=== PATIENT | male | born 1940 | race Caucasian/White ===

== ENCOUNTER 2024-04-01 08:48 | Day surgery (SDC) | payer MEDICARE, SELFPAY ==
[2024-03-21 08:41] VITALS: BMI 27.7
[2024-04-01] VITALS (12 sets, daily range): BP systolic 102–167; BP diastolic 40–98; PULSE 50–71; RESP 12–18; TEMP 35.8–36.6; O2SAT 96–100; BMI 27.3; BMI 29.5
--- NOTE | 2024-04-01 | DI.RAD.S_ITS ---
PROCEDURE: XR HIP W PEL IF DONE RT 2V INDICATIONS: Anterior right total hip TECHNIQUE: 2 intraoperative fluoroscopic view(s) of the hip acquired. COMPARISON: None. FINDINGS: Intraoperative fluoroscopic images shows right total hip arthroplasty in progress. IMPRESSION: Fluoro guidance was provided intraoperatively for right total hip arthroplasty. Dictated by: Ren Mcdonnell M.D. on 04/01/2024 at 14:33 Approved by: Ren Mcdonnell M.D. on 04/01/2024 at 14:35
--- NOTE | 2024-04-01 06:00 | DI.RAD.S_ITS ---
PROCEDURE: XR HIP W PEL IF DONE RT 2V INDICATIONS: ISHAN TECHNIQUE: 2 views of the hip were acquired. COMPARISON: [facility], , XR HIP W PEL IF DONE RT 2V, 04/01/2024, 12:28. FINDINGS: Bones: Right hip arthroplasty. Pelvic clips are also seen Iipn-[id number]-bzarnigy left hip arthrosis. Soft tissues: Postsurgical changes IMPRESSION: Postsurgical changes following right hip arthroplasty. Dictated by: Pablo Perez M.D. on 04/05/2024 at 12:19 Approved by: Pablo Perez M.D. on 04/05/2024 at 12:19
[2024-04-01] MEDS: ACETAMINOPHEN 325 MG TABLET 975 MG PO (09:41)
[2024-04-01] MEDS: MELOXICAM 7.5 MG TABLET 15 MG PO (09:42)
[2024-04-01] MEDS: LACTATED RINGERS 1,000 ML 42 ML IV ×2 (09:43→12:46)
--- NOTE | 2024-04-01 10:20 | PM.PREOP ---
Pre-operative Note Interval Note History & Physical reviewed/Exam performed by Physician: Yes Changes to H&P: No
--- NOTE | 2024-04-01 11:00 | SUR.OPER ---
Supine on padded [place] table with bilateral legs secured in padded positioning boots and suspended in positioning spars, operative leg in traction per surgeon. Head on one pillow. Arms secured on padded armboard <90 degrees abduction. Padded perineal post in place per surgeon.
[2024-04-01 11:24] LABS: Hematocrit 39.5 % (41-53); Hemoglobin 13.4 g/dL (13.5-17.5); Mean Corpuscular HGB Conc 33.8 % (30-36); Mean Corpuscular Hemoglobin 33.8 PG (26-34); Platelet Count 172 X10^3/uL (150-400); Red Blood Cell Count 3.95 X10^6/uL (4.5-5.9); Red Cell Distribution Width 14.1 % (11.6-14.8); White Blood Cell Count 6.1 X10^3/uL (4.5-11.0)
[2024-04-01 11:35] LABS: BUN Creatinine Ratio 24.2 (6-22); Blood Urea Nitrogen 36 mg/dL (9-20); Calcium 9.7 mg/dL (8.4-10.2); Carbon Dioxide 22 mmol/L (22-32); Chloride 108 mmol/L (98-107); Estimated Glomerular Filt Rate 46 mL/min (>60); Glucose 90 mg/dL (80-110); HEMOLYSIS < 15 (0-50); Potassium 4.7 mmol/L (3.4-5.1); Sodium 140 mmol/L (137-145)
[2024-04-01] MEDS: TRANEXAMIC ACID 1,000 MG VIAL 1000 MG INJ ×2 (11:41→13:14)
[2024-04-01] MEDS: CEFAZOLIN 2 GM/100 ML PREMIX 100 ML IV ×2 (11:44→20:52)
[2024-04-01] MEDS: ROPIVACAINE/EPI/CLONIDINE/KET 50 ML SYRINGE INJ (12:06)
--- NOTE | 2024-04-01 13:19 | P.OP_ITS ---
Operative Date/Time/Diagnoses Date of procedure: 04/01/24 Pre-op diagnosis: Right hip osteoarthritis Post-op diagnosis: same Procedure & Clinicians Procedure: Right total hip arthroplasty (79077) Same procedure as scheduled: Yes Surgeon: Mikael Millan Transport Aircrewman: Gail Romero Anesthesia Type: Spinal, Sedation and Local Operative Notes Estimated Blood Loss (mL): 300 Procedure in detail: Right Uncemented Direct Anterior Depuy Total Hip Arthroplasty: Implants: * [place] Gription size 56 cup? * Actis femoral stem size 9 high offset? * 36 mm +8.5 ceramic femoral head? Procedure Summary: This 83-year-old male patient had an extremely varus hip preoperatively. I also noted some areas of cortical irregularities in his femur so I obtained an MRI of his femur for preoperative planning purposes. This did not demonstrate any concerning features for malignancy on my review. I obtained a DEXA scan for evaluation of his bone quality which demonstrated a T-score of-0.6, indicative of overall very good bone quality for an 83-year-old male. I therefore utilized uncemented fixation with a triple tapered collared uncemented stem for the procedure today. Because of his extremely varus anatomy I planned to place the stem below the lesser trochanter. After initial trialing I found that a size 8 broach, although stable with a high offset neck and a +12 head, was rotationally unstable. I therefore upsized to a size 9 broach and repeated the trialing process with a +8.5 head. When this was appropriate on all parameters I implanted those sizes. I did sink the stem below the lesser trochanter and the calcar planer did remove a portion of the lesser trochanter. A conjoined tendon release was used given the depth that which it was necessary to sink the broach. Procedure in Detail: This patient was seen preoperatively and evaluated for hip pain which was refractory to numerous nonoperative treatment modalities. Their hip pain correlated with radiographic changes demonstrating significant degeneration in the hip joint. The risks and benefits of continued nonoperative management versus operative management were discussed at length and all of the patient?s q uestions were answered. Additional educational materials providing further details beyond our discussion in clinic were provided via a publicly available patient education video which included the incidence of medical complications associated with total hip arthroplasty, reasons for revision following total hip arthroplasty, and patient satisfaction rates following total hip arthroplasty. That video can be accessed at [email or web address] . With this understanding of the risks inherent to the procedure, the patient elected to move forward with operative management. Following preoperative optimization, the patient was scheduled for surgery. The patient was met in the preoperative holding area the day of the procedure and all questions were answered. The patient?s nares were swabbed with betadine in order to decolonize them from MRSA. Informed consent was signed and the right limb was marked with indelible ink.? The patient was brought back to the operating room where anesthesia was induced. The patient was transferred to the [place] table and all bony prominences were padded. The operative site was prepped and draped in the usual sterile fashion. Prior to incision, tranexamic acid and cefazolin were administered. Operative templating images were displayed demonstrating the anticipated implant sizes and correct operative extremity. A timeout procedure was performed verifying the patient?s identity, medical comorbidities, allergies, relevant medications, anesthesia type and the surgical plan. All present were in agreement. The assistance of a physician observation assistant was required for positioning, room setup, soft tissue retraction and wound closure. Without this assistance, the procedure would have been significantly more challenging and time consuming.?? A direct anterior approach to the hip was utilized. This was performed with a longitudinal incision through a Heuter interval. The incision was planned 2 cm distal and 2 cm lateral to the ASIS extending towards the lateral patella, in line with the muscle body of the TFL. Following incision, the subcutaneous tissue was dissected while taking care to avoid injury to the lateral femoral cutaneous nerve. The fascia overlying the TFL was identified by dissecting off the overlying fat and identifying perforating vessels to the TFL. The TFL fascia was incised and dissected away from the medial border of the TFL. A cobra retractor was placed over the superior femoral neck between the abductors and the hip capsule and used to reflect the TFL laterally. A [place] self-retainer was then placed in the distal aspect of the wound between the TFL and the rectus femoris. This was tensioned to open up the direct anterior interval and the lateral circumflex vessels were identified and coagulated using electrocautery. The floor of the TFL fascia was incised, exposing the pericapsular fat overlying the hip capsule. A second cobra retractor was placed on the inferior femoral neck. A double-bent soft tissue retractor was placed on the anterior wall of the acetabulum and used to tension the reflected head of rectus femoris, which was then released in order to limit soft tissue tension. A capsulotomy was made in the midline of the anterior hip capsule in line with the femoral neck ending at the vastus tubercle. The double-bent retractor was removed in order to limit the amount of time that a soft tissue retractor remained on the anterior wall and protect the femoral nerve. Tag stitches were placed in the superior and inferior leaflets of the hip capsule. An Mikey soft tissue retractor was introduced over the tag stitches and tensioned in the interval between the rectus femoris and the TFL in order to retract and protect those muscles. The cobra retractors were replaced intracapsularly, with one over the superior neck in the pocket created by the base of the greater trochanter and the other on the femoral head. The capsulotomy was extended laterally to the base of the greater trochanter and medially to the lesser trochanter. This required externally rotating the hip. Once the lesser trochanter had been identified, a neck cut was planned according to measurements from preoperative templating. A ruler was cut at the length measured between the superior aspect of the lesser trochanter and the collar of the prosthesis. This line was extended towards the inferior aspect of the lateral cobra retractor to plan a cut which would leave minimal residual femoral neck laterally. The neck was cut at 60 degrees of external rotation along that line. A second cut was performed to remove a large napkin ring and facilitate head extraction. The napkin ring cut and femoral head were removed.?? A broad anterior wall retractor was placed between the labrum and the anterior capsule so that the anterior capsule would prevent capturing and pinching the femoral nerve anteriorly. An additional retractor was placed on the posterior wall. External rotation and traction were applied through the [place] table so that the cut surface of the femoral neck would not restrict access to the acetabulum. The labrum was excised sharply and the pulvinar was excised with electrocautery to limit bleeding from branches of the obturator artery. Acetabular reamers were selected based on preoperative templating and measurements of the excised femoral head. These were introduced into the acetabulum. Fluoroscopy was utilized to replicate a standing AP pelvis radiograph by centering over the pelvis, rotating until there was appropriate symmetry between the obturator foramen, and introducing caudal tilt to match the position of the pubic symphysis relative to the sacrococcygeal junction according to the patient?s anatomy. Fluoroscopy was utilized to ensure appropriate reaming depth. Once satisfied with the reaming depth corresponding to the preoperative template and the pinch fit between the columns, an appropriate sized acetabular cup was selected which would provide 1 mm of press-fit. This cup was introduced and manipulated until appropriate abduction and anteversion angles were obtained with careful attention to appropriate abduction and anteversion angles as evaluated by the position of the cup relative to the anterior and posterior ragland of the acetabulum and the AP fluoroscopy which recreated the patient?s sta nding radiograph. The cup was impacted into place. Peripheral osteophytes were removed. The acetabular liner was then placed with care to ensure locking of the locking mechanism.? Attention was then turned to the femur. All retractors were removed, traction was released, a retractor was placed in the interval between the hip capsule and the gluteus minimus, and the hip was externally rotated to 90 degrees. Traction was applied through the [place] table to tension the lateral capsule and this was released using electrocautery. Traction was released and a [place] hook was placed posteriorly around the proximal femur at the level of the vastus ridge. The table height was lowered in order to restrict the tension on the anterior structures during hip hyperextension to limit the risk of femoral nerve palsy. With traction off and the hip at 90 degrees of external rotation, the hip was hyperextended and adducted while manually elevating the femur away from the acetabulum with the [place] hook to ensure it would not be caught behind the greater trochanter. An asymmetric retractor was placed over the calcar and a broad double-pronged retractor was placed over the greater trochanter. The tag stitch capturing the lateral leaflet of the capsule was moved to the medial side, leaving the conjoined and piriformis tendons isolated in the face of the greater trochanter. The hip was externally rotated and elevated. A release of the conjoined tendon was necessary in order to obtain adequate exposure for broaching. The canal was opened with an opening broach and a rasp was used to remove cancellous bone. A rongeur was used to remove the residual lateral bone at the base of the greater trochanter to avoid placing the stem in varus. The femur was then broached to the appropriate sized stem yielding good rotational fit and fill of the canal as well as appropriate version of the stem trial. Neck and head trials were placed, all retractors were removed and the hip was returned to neutral abduction and extension. I then reduced the hip. Initial trialing was performed with a size 8 broach, a high offset neck and a +5 head. I initially manually externally rotated the hip and found that it disl ocated, so I upsized to a +8.5 head. This appeared to be slightly short so I upsized to a +12 head. With that construct in place there was no instability with maximum external rotation. I then locked the hip in 45 degrees of external rotation and dropped it to the floor with traction off which demonstrated no instability. An AP pelvis fluoroscopic image matching the preoperative standing radiograph with both lesser trochanters visible and both hips in 40 degrees of external rotation demonstrated grossly appropriate leg length and offset. AP and lateral hip fluoroscopic images were obtained to evaluate the broach size which demonstrated grossly appropriate canal fill. The hip was dislocated and I returned to the broaching position. Based on my evaluation during initial trialing I planned to place these definitive implants. I returned to the broaching position and found that the size 8 broach was actually rotationally unstable so I upsized to a size 9 broach. This did add some length, as it did not seem to the same depth as the size 8 broach. I had not yet calcar planed so I was able to calcar plane only at that relatively higher point in the femur. I repeated the trialing process with a +8.5 head to ensure that it would be appropriate to downsize the head to equalize the leg lengths gained from up sizing the stem. All parameters remained appropriate as they had with the size 8 and the +12 head. I therefore returned to the broaching position with the intention of placing those definitive implants. I again tested the size 9 broach and found that it was rotationally stable although I was able to sink it approximately an additional mm.. The definitive stem was placed and the trunnion was cleaned and dried. I placed a ceramic head onto the trunnion and impacted it into place on the Richard taper.?? All retractors were removed and the hip was reduced. A dilute mixture of betadine and peroxide was used to bathe the soft tissues during final fluoroscopic assessment. Appropriate component positioning was confirmed on an AP pelvis radiograph with the operative and nonoperative legs in 40 degrees of external rotation, evaluating leg length and offset. Appropriate stem fill was evaluated on AP and lateral hip radiographs. No fractures were identified on these radiographs. There was no hip instability with maximum (approximately 115) external rotation as well as a 45 degree drop test. The hip was copiously irrigated with pulse lavage. The capsule was closed with absorbable interrupted suture. The TFL fascia was closed with barbed suture while carefully protecting the lateral femoral cutaneous nerve from entrapment. A mixture of Ropivacaine, Epinephrine, Clonidine and Toradol was infiltrated throughout the soft tissues. The skin was closed with 2-0 and 3-0 sutures. Surgical glue was applied and a soft dressing was placed.??The sponge, instrument and needle counts were reported as being correct at the end of the case.??No obvious complications occurred. The patient was transferred from the [place] table back to a stretcher. The patient emerged from anesthesia without difficulty and was taken to the PACU in a stable condition.? Plan for aftercare: * Anterior hip precautions * Weightbearing as tolerated * Aspirin 81 twice per day for DVT prophylaxis * Anticipate discharge home tomorrow * Change into normal clothes upon arrival on the hospital floor * Mobilize in the halls as much as is logistically possible. If physical therapy is unavailable for mobilization, then patient should mobilize with nursing staff * Multimodal pain regimen with no IV opioids ordered * Apply ice machine to operative hip. Ensure that sufficient ice is in the chamber for the pad to remain cold * Follow up at [facility] in 2 weeks * Detailed postoperative instructions available at [email or web address]
[2024-04-01] MEDS: OXYCODONE IR 5 MG TABLET PO (14:32)
[2024-04-01] MEDS: LACTATED RINGERS 1,000 ML 100 ML IV (15:03)
--- NOTE | 2024-04-01 15:27 | PC.NURSE ---
Day shift: In room from PACU at approx 1445. He is A&Ox4. VS WNL. RA 97%. Agrees to not get OOB w/o help from staff. PPP. Weakness present in BLE's. Dressing is CDI. Spouse in room for support.
--- NOTE | 2024-04-01 16:20 | PT.IIE ---
Current Diagnoses Unilateral primary osteoarthritis, right hip (04/01/24) Surgery Performed Operation Date: 04/01/24 10:45 Actual Procedures p Total Hip Arthroplasty/Anterior Approach - hana table(Right) - Mikael Millan MD Surgical History (Last Reviewed 04/01/24 @ 09:51 by Kaylin Briseno, RN) History of back surgery (1992) History of tonsillectomy Hx of arthroscopy of left knee Hx of arthroscopy of right knee Hx of bilateral cataract extraction (2022) Hx of laminectomy (1990) Hx of prostatectomy (2003) Medical History (Last Reviewed 04/01/24 @ 09:51 by Kaylin rBiseno, RN) Atrial fibrillation Hearing loss HLD (hyperlipidemia) HTN (hypertension) Hx of syncope Hypothyroid Memory loss Mild aortic stenosis Osteoarthritis PAF (paroxysmal atrial fibrillation) Prostate cancer Skin cancer SVT (supraventricular tachycardia) Vitamin D deficiency Physical Therapy Inpatient Evaluation/Re-Eval M1 PT/OT-IP Prior Functional Status Start: 04/01/24 17:27 Freq: NEEDED Status: Active Protocol: Document 04/01/24 16:20 AB (Rec: 04/01/24 17:39 AB [id number]) Medical Review Prior Functional Status Medical History Reviewed Yes Communication able to make needs known Mobility and Gait pt stated that he was independent with all mobilities and ambulation without AD Social History Household Members significant other Living Arrangements Mobile home Number of Floors (Floors) One Floor Number of Stairs To Enter/Railing? ramp to enter the house Home Environment High Toilet,Ramp Home Equipment Front Wheel Walker,Straight Cane,Shower Seat without Backrest,Hand Held Shower,Grab Bars Near Toilet,Grab Bars In Shower M2 PT-IP Current Condition Start: 04/01/24 17:27 Freq: NEEDED Status: Active Protocol: Document 04/01/24 16:20 AB (Rec: 04/01/24 17:39 AB [id number]) Physical Therapy Current Condition Current Condition Evaluation Date 04/01/24 Treatment Diagnosis s/p R ISHAN anterior; difficulty in walking Onset Date 04/01/24 M3 PT-IP Subjective Start: 04/01/24 17:27 Freq: NEEDED Status: Active Protocol: Document 04/01/24 16:20 AB (Rec: 04/01/24 17:39 AB [id number]) Subjective Physical Therapy Visit Type Type Initial Evaluation Visit Start Time 16:20 Visit Stop Time 17:25 Number of SET BUILDER Visits 0 Physical Therapy Visit Comments Patient Comments agreeable to do PT Therapy Pain Assessment Pain When Pain Assessed At Rest Pain Present Pain Present Pain Reported Location Right Hip Intensity 3 Scale Used Numeric (0 - 10) Pain Management Techniques Distraction,Modification of Treatment,Re-positioning, Timing of Activity with Medications M4 PT-IP Mobility and Gait Start: 04/01/24 17:27 Freq: NEEDED Status: Active Protocol: Document 04/01/24 16:20 AB (Rec: 04/01/24 17:39 AB [id number]) PT-Bed Mobility Assessment Supine to Sit Supine to Sit Maximum Assistance PT-Transfer Assessment Sit to and From Stand Sit to and from Stand Moderate Assistance,1 Person Assistance,Use of Upper Extremities Equipment Transfer Assistive Device Gait Belt,Front Wheeled Walker Orthotic/Prosthetic Devices or Brace: No Comments Mobility Comments pt supine in bed. significant other in room with pt. obtained PLOf and home set up from pt and significant other. post-op folder provided and reviewed contents. educated pt and spouse regarding R hip anterior precautions and WBAT. BP in supine: 161/80. O2 sat 100 % and RI 66 pt completed supine to sit max A and max cues for techniques . pt needed assist to move RLE to EOB. pt able to sit on EOB SBA. no c/o dizziness/ lightheadedness. completed sit to stand mod A and cues. pt able to standin min to mod A for standing balance using FWW for support. pt with decrease bladder control and instructed to sit back down. pt stated that he still does not have sensation on his groin/bladder. assist pt with brief management. completed sit to stand min to mod A and max cues. NAC in room and assisted with use of urinal and brief management. pt ambulated in room using fWW min A and cues ~ 40 ft. cued for anterior hip precautions and RLe stability/quads activation. pt sat on the chair. positioned pt on the chair. call light and table placed within reach. caregiver training set up for tomorrow at 10 am. Gait Assessment Gait Gait Assistance Required: Minimum Assistance Distance (Feet) 40 Able to Maintain Weight Bearing Status Yes During Gait Assistive Devices Assistive Device Gait Belt,Front Wheeled Walker Orthotic/Prosthetic Devices or Brace: No Gait Deviations General Gait Pattern Antalgic,Decreased Feet Clearance Factors Limiting Gait Function Factors Limiting Gait Function Decreased Activity Tolerance, Decreased Strength,Limited Range of Motion,Pain,Poor Balance,Poor Safety Awareness PT-Balance Assessment Sitting Balance and Reactions Static Sitting Balance Ability Normal Dynamic Sitting Balance Ability Good Standing Balance and Reactions Static Standing Balance Ability Fair Dynamic Standing Balance Ability Fair Device Used FWW M5 PT-IP Objective Assessments Start: 04/01/24 17:27 Freq: NEEDED Status: Active Protocol: Document 04/01/24 16:20 AB (Rec: 04/01/24 17:39 AB [id number]) Orientation Orientation/Cognition Level of Alertness Alert Orientation Name,Place,Situation Language Function Ability No Deficits Noted Safety Awareness Understands Safety Issues Memory Description No Deficits Noted Gross Range of Motion Lower Extremity ROM Assessment Within Functional Limits Strength Lower Extremity Strength Assessment Right Impaired Hip 2+/5 Knee 3+/5 Coordination Assessment Gross Coordination Gross Coordination WNL Sensation Assessment Sensation Sensation Description Numbness Comments Sensation Comments groin numbness Muscle Tone Muscle Tone WNL Yes M6 PT-IP Treatment Start: 04/01/24 17:27 Freq: NEEDED Status: Active Protocol: Document 04/01/24 16:20 AB (Rec: 04/01/24 17:39 AB [id number]) Physical Therapy Treatment Exercises Exercises Heel Slides Education Education Provided Precautions,Weight Bearing Status,Post-Op Packet,Safety M7 PT-IP Assessment and Plan Start: 04/01/24 17:27 Freq: NEEDED Status: Active Protocol: Document 04/01/24 16:20 AB (Rec: 04/01/24 17:39 AB [id number]) PT Summary Assessment and Plan Potential Rehabilitation Potential Fair Status of Condition at Evaluation Evolving Summary Impairments Pain,ROM,Strength,Balance, Coordination,Sensation,Bed Mobility,Transfers,Gait, Activity Tolerance Assessment Summary pt is an 83 y/o M s/p R ISHAN anterior approach POD 0. pt has R hip anterior precautions and is WBAT on RLE. pt requiring max A for bed mobility and min to mod A for transfers and ambulation using FWW. caregiver training set up for tomorrow at 10 am. will continue to assess progress. pt stated that he has outpt PT setup. Goals Bed Mobility Goal Independent Transfer Goal Independent,Front Wheeled Walker Gait Goal Independent,Front Wheel Walker Gait Distance 200 Days to Meet Goals 5 Frequency of Treatment Frequency Of Treatment Twice a Day Treatment Plan Physical Therapy Treatment Plan Bed Mobility Training,Transfer Training,Gait Training, Therapeutic Exercise,Balance Retraining,Post Op Education, Discharge Planning,Hot or Cold Pack,Neuromuscular Re-ed, Coordination Retraining,Manual Therapy Precautions Anterior Hip Precautions No Hip Extension,No Hip External Rotation Weight Bearing Status Weight Bearing Status Weight Bear as Tolerated Allowed Weight Bearing Amount (enter % RLE WBAT or #) (%) Recommendations To Nursing Amount of Assist Needed 1 Person Assist Discharge Recommendations PT Discharge Recommendations Home with Assistance, Outpatient PT Transportation Needs at Discharge Private Vehicle
[2024-04-01] MEDS: METOPROLOL IR 25 MG TABLET 12.5 MG PO (16:37)
--- NOTE | 2024-04-01 21:01 | PM.PN.1 ---
Subjective Subjective Interval history: I came by to see [place] postoperatively. He is sitting in his bedside chair resting comfortably. He reports that he has had no issues getting up and walking around his room for brief periods of time. He has minimal pain currently. He reports he has not yet urinated but does not have any issues urinating at baseline as he has had a prostate resection. He has intact sciatic and femoral nerve function. His dressing is clean dry and intact. Exam Vital Signs (past 8 hours): - 04/01/24 13:50 04/01/24 13:55 04/01/24 14:00 Temperature 97.3 F L Pulse Rate 71 63 52 L Respiratory Rate 14 14 14 Blood Pressure 126/46 L 127/40 L 160/78 H Pulse Oximetry 96 98 99 04/01/24 14:10 04/01/24 14:24 04/01/24 14:59 Temperature 96.5 F L Pulse Rate 62 66 50 L Respiratory Rate 14 12 16 Blood Pressure 142/75 H 150/74 H 167/92 H Pulse Oximetry 98 98 100 04/01/24 15:00 04/01/24 16:00 04/01/24 17:00 Temperature Pulse Rate 69 Respiratory Rate Blood Pressure 153/81 H 140/98 H 161/80 H Pulse Oximetry 100 04/01/24 18:00 04/01/24 20:43 Temperature 97.9 F 97.7 F Pulse Rate 63 62 Respiratory Rate 18 18 Blood Pressure 102/59 L 118/62 Pulse Oximetry 100 99 Oxygen Delivery Method Room Air Objective Labs 04/01/24 11:13 04/01/24 11:13 Labs: Laboratory Results - last 24 hr 04/01/24 11:13 WBC 6.1 RBC 3.95 L Hgb 13.4 L Hct 39.5 L MCV 100.0 MCH 33.8 MCHC 33.8 RDW 14.1 Plt Count 172 Sodium 140 Potassium 4.7 Chloride 108 H Carbon Dioxide 22 BUN 36 H Creatinine 1.49 H Estimated GFR 46 L BUN/Creatinine Ratio 24.2 H Glucose 90 Calcium 9.7 PFSH Medical History Skin cancer Hearing loss Memory loss Vitamin D deficiency Hypothyroid Osteoarthritis Mild aortic stenosis HLD (hyperlipidemia) HTN (hypertension) Hx of syncope Prostate cancer SVT (supraventricular tachycardia) PAF (paroxysmal atrial fibrillation) Atrial fibrillation Surgical History History of back surgery (1992) History of tonsillectomy Hx of prostatectomy (2003) Hx of bilateral cataract extraction (2022) Hx of laminectomy (1990) Hx of arthroscopy of left knee Hx of arthroscopy of right knee Social History household members: significant other Smoking Status: Former smoker alcohol intake: current Assessment & Plan Time-Based Coding :: [TOTAL MINUTES] spent with patient and on the chart (including review of chart, obtaining history, exam, reviewing outside data, placing orders, documenting exam and treatment plan, and counseling patient) on [DATE]. Quality VTE Deep Vein Thrombosis/Pulmonary Embolism Present on Admission: No
[2024-04-01] MEDS: ASPIRIN EC 81 MG TABLET PO (21:28)
[2024-04-01] MEDS: ACETAMINOPHEN 325 MG TABLET 650 MG PO (21:28)
[2024-04-02] MEDS: IBUPROFEN 600 MG TABLET PO ×3 (00:19→12:31)
[2024-04-02] MEDS: ACETAMINOPHEN 325 MG TABLET 650 MG PO ×2 (03:24→08:59)
[2024-04-02] MEDS: CEFAZOLIN 2 GM/100 ML PREMIX 100 ML IV (03:25)
[2024-04-02 04:30] VITALS: BP 117/66; PULSE 68; RESP 16; TEMP 36.8; O2SAT 96
[2024-04-02] MEDS: LEVOTHYROXINE 50 MCG TABLET PO (06:27)
--- NOTE | 2024-04-02 08:36 | P.DS_ITS ---
History of Present Illness History of Present Illness Date Patient Seen: 04/02/24 Time Patient Seen: 08:36 Chief complaint: OPB Narrative: This patient was seen preoperatively and evaluated for hip pain which was refractory to numerous nonoperative treatment modalities. Their hip pain correlated with radiographic changes demonstrating significant degeneration in the hip joint. The risks and benefits of continued nonoperative management versus operative management were discussed at length and all of the patient?s questions were answered. Additional educational materials providing further details beyond our discussion in clinic were provided via a publicly available patient education video which included the incidence of medical complications associated with total hip arthroplasty, reasons for revision following total hip arthroplasty, and patient satisfaction rates following total hip arthroplasty. That video can be accessed at [email or web address] . With this understanding of the risks inherent to the procedure, the patient elected to move forward with operative management. Discharge Providers Provider Discharge Date: 04/02/24 Primary care physician: Charley Ricketts PA-C Consults: 04/01/24 06:00 Consult to Anesthesiology Routine Comment: Consulting Provider: Anesthesiologist Reason for consultation: Regional block for post operative pain control Has provider been notified: No 04/01/24 14:59 Consult to Discharge Planning Routine Comment: Consult to Physical Therapy Evaluate & Treat Comment: Physician Instructions: post op ISHAN protocol Discharge provider: Héctor Ruiz PA-C Summary Hospital Course Discharge Diagnosis: Right hip osteoarthritis Hospital Course: Procedure: Right total hip arthroplasty (12538) Same procedure as scheduled: Yes Surgeon: Mikael Millan Sergeant At Arms: Gail Romero Anesthesia Type: Spinal, Sedation and Local Operative Notes Estimated Blood Loss (mL): 300 Procedure in detail: Right Uncemented Direct Anterior Depuy Total Hip Arthroplasty: Implants: * Darden Gription size 56 cup? * Actis femoral stem size 9 high offset? * 36 mm +8.5 ceramic femoral head? Status at Discharge Cognitive/behavioral status at discharge: oriented Functional status at discharge: uses cane/walker Overall status at discharge: patient is back to baseline Time Spent with Patient Time spent: Less than 30 minutes Exam Vital Signs (past 8 hours): - 04/02/24 04:30 Temperature 98.2 F Pulse Rate 68 Respiratory Rate 16 Blood Pressure 117/66 Pulse Oximetry 96 Oxygen Delivery Method Room Air Narrative Exam Narrative: patient found sitting in his chair comfortably. Pain control with oral medications. Patient feels he is ready to be discharged back to home. 5/5 strength in hip flexors, quadriceps, hamstrings, DF, PF, EHL bilaterally. Sensation to light touch intact throughout BLE. Calves soft, compressible, nontender. Dressing placed intraoperatively CDI. Objective Labs 04/01/24 11:13 04/01/24 11:13 Labs: Laboratory Results - last 24 hr 04/01/24 11:13 WBC 6.1 RBC 3.95 L Hgb 13.4 L Hct 39.5 L MCV 100.0 MCH 33.8 MCHC 33.8 RDW 14.1 Plt Count 172 Sodium 140 Potassium 4.7 Chloride 108 H Carbon Dioxide 22 BUN 36 H Creatinine 1.49 H Estimated GFR 46 L BUN/Creatinine Ratio 24.2 H Glucose 90 Calcium 9.7 PFSH Medical History Skin cancer Hearing loss Memory loss Vitamin D deficiency Hypothyroid Osteoarthritis Mild aortic stenosis HLD (hyperlipidemia) HTN (hypertension) Hx of syncope Prostate cancer SVT (supraventricular tachycardia) PAF (paroxysmal atrial fibrillation) Atrial fibrillation Surgical History History of back surgery (1992) History of tonsillectomy Hx of prostatectomy (2003) Hx of bilateral cataract extraction (2022) Hx of laminectomy (1990) Hx of arthroscopy of left knee Hx of arthroscopy of right knee Social History household members: significant other Smoking Status: Former smoker alcohol intake: current Discharge Assessment & Plan Assessment and Plan Assessment: Status post left hip total arthroplasty Plan of Treatment: ? Anterior hip precautions ? Weightbearing as tolerated with assistive devices ? Aspirin 81 twice per day for DVT prophylaxis ? Multimodal pain regimen. Postoperative medications already been prescribed instructed with use. ? Discharge home today. Initiate physical therapy in the next 5-10 days. ? Follow up at [facility] in 2 weeks Discharge Plan Discharge Plan Patient Disposition: Home Discharge orders & Medications Discharge Orders: Discharge (Order); Ordered 04/02/24 Ordered By: Héctor Ruiz Prescriptions: New docusate sodium 100 mg Capsule 100 mg PO BID Qty: 30 0RF aspirin 81 mg Tablet,Delayed Release (Dr/Ec) 81 mg PO BID Qty: 90 0RF Continued amlodipine 5 mg Tablet 5 mg PO DAILY levothyroxine 50 mcg Tablet 50 mcg PO DAILY metoprolol tartrate 25 mg Tablet 12.5 mg PO BID Discontinued aspirin 81 mg Capsule 81 mg PO DAILY Follow up/Referrals: Charley Ricketts, LUIS [Primary Care Provider] - Mikael Millan MD [Physician] - (Follow up at [facility] as scheduled in 2 weeks. ) Diet/Activity/Treatments Diet: Diet as Tolerated Activity: Weightbearing as tolerated, maintain anterior hip precautions. Work with outpatient physical therapy to improve mobility. Cold/Heat Therapy: Ice to the hip for additional pain control Skin/Wound/Dressing Care Report to your healthcare provider any signs of infection, such as:: chills, fever, night sweats, unusual drainage and unusual redness Dressing: Keep dressing intact, clean and dry until 2 week post-op appointment. No soaking the incision site in pools or tubs. No topical ointments or creams to the incision site. Visit Report/Discharge Packet Instructions: DI for Hip Replacement, How to Prevent Falls, DI for Prescription Opioid Use Stand Alone Forms: Patient Portal/API, Stroke Signs & Symptoms, Surgery Discharge Discharge Data Primary Care Provider: Charley Ricketts Attending Provider: Mikael Millan Quality VTE Deep Vein Thrombosis/Pulmonary Embolism Present on Admission: No
[2024-04-02 08:51] VITALS: BP 146/76; PULSE 70; RESP 16; TEMP 37.3; O2SAT 97
[2024-04-02] MEDS: METOPROLOL IR 25 MG TABLET 12.5 MG PO (08:57)
[2024-04-02] MEDS: ASPIRIN EC 81 MG TABLET PO (08:59)
--- NOTE | 2024-04-02 10:15 | PT.IPTN ---
Current Diagnoses Unilateral primary osteoarthritis, right hip (04/01/24) Surgery Performed Operation Date: 04/01/24 10:45 Actual Procedures p Total Hip Arthroplasty/Anterior Approach - hana table(Right) - Mikael Millan MD Physical Therapy Treatment Note M2 PT-IP Current Condition Start: 04/01/24 17:27 Freq: NEEDED Status: Active Protocol: Document 04/01/24 16:20 AB (Rec: 04/01/24 17:39 AB [id number]) Physical Therapy Current Condition Current Condition Evaluation Date 04/01/24 Treatment Diagnosis s/p R ISHAN anterior; difficulty in walking Onset Date 04/01/24 M3 PT-IP Subjective Start: 04/01/24 17:27 Freq: NEEDED Status: Active Protocol: Document 04/02/24 10:15 AB (Rec: 04/02/24 12:26 AB [id number]) Subjective Physical Therapy Visit Type Type Treatment Note Visit Start Time 10:15 Visit Stop Time 12:10 Number of ASSEMBLER CARBON BRUSHES Visits 0 Physical Therapy Visit Comments Patient Comments agreeable to do PT Therapy Pain Assessment Pain When Pain Assessed At Rest Pain Present Pain Present Pain Reported Location Right Hip Intensity 2 Scale Used Numeric (0 - 10) Pain Management Techniques Distraction,Re-positioning, Timing of Activity with Medications M4 PT-IP Mobility and Gait Start: 04/01/24 17:27 Freq: NEEDED Status: Active Protocol: Document 04/02/24 10:15 AB (Rec: 04/02/24 12:26 AB [id number]) PT-Bed Mobility Assessment Supine to Sit Supine to Sit Standby Assistance Sit to Supine Sit to Supine Standby Assistance PT-Transfer Assessment Sit to and From Stand Sit to and from Stand Standby Assistance,Contact Guard Assistance,1 Person Assistance,Use of Upper Extremities Equipment Transfer Assistive Device Gait Belt,Front Wheeled Walker Orthotic/Prosthetic Devices or Brace: No Transfers Transfer Destination Bed,Chair Transfer Technique ambulated Transfer Ability Level of Assist Standby Assistance,Contact Guard Assistance,Use of Upper Extremities Comments Mobility Comments pt sitting on the chair. significant other in room with pt. reviewed anterior hip precautions with pt and pt was able to recall. caregiver training conducted. educated significant other/ caregiver on how to use safety belt and how to assist pt. caregiver was able to put safety belt on pt and assisted pt with sit to stand CGA. pt ambulated in room using FWW ~ 40 ft SBA to CGA with caregiver assisting. pt sat on EOB and completed bed mobility SBA. pt completed step transfer to chair using FWW SBA. positioned pt on the chair. call light and table placed within reach. pt and significant other without further concerns. Gait Assessment Gait Gait Assistance Required: Standby Assistance,Contact Guard Assist Distance (Feet) 40 Assistive Devices Assistive Device Gait Belt,Front Wheeled Walker Orthotic/Prosthetic Devices or Brace: No Gait Deviations General Gait Pattern Antalgic,Decreased Feet Clearance Factors Limiting Gait Function Factors Limiting Gait Function Decreased Activity Tolerance, Decreased Strength,Limited Range of Motion,Pain,Poor Balance,Poor Safety Awareness M5 PT-IP Objective Assessments Start: 04/01/24 17:27 Freq: NEEDED Status: Active Protocol: Document 04/01/24 16:20 AB (Rec: 04/01/24 17:39 AB [id number]) Orientation Orientation/Cognition Level of Alertness Alert Orientation Name,Place,Situation Language Function Ability No Deficits Noted Safety Awareness Understands Safety Issues Memory Description No Deficits Noted Gross Range of Motion Lower Extremity ROM Assessment Within Functional Limits Strength Lower Extremity Strength Assessment Right Impaired Hip 2+/5 Knee 3+/5 Coordination Assessment Gross Coordination Gross Coordination WNL Sensation Assessment Sensation Sensation Description Numbness Comments Sensation Comments groin numbness Muscle Tone Muscle Tone WNL Yes M6 PT-IP Treatment Start: 04/01/24 17:27 Freq: NEEDED Status: Active Protocol: Document 04/02/24 10:15 AB (Rec: 04/02/24 12:26 AB [id number]) Physical Therapy Treatment Education Education Provided Precautions,Safety M7 PT-IP Assessment and Plan Start: 04/01/24 17:27 Freq: NEEDED Status: Active Protocol: Document 04/02/24 10:15 AB (Rec: 04/02/24 12:26 AB [id number]) PT Summary Assessment and Plan Potential Rehabilitation Potential Good Summary Impairments Pain,ROM,Strength,Balance, Coordination,Sensation,Tone, Cognition,Bed Mobility, Transfers,Gait,Activity Tolerance Progress Towards Goals Progressing Toward Goals Assessment Summary pt requiring SBA to CGA with mobility using FWW. caregiver training conducted and pt's significant other was able to safely assist pt. pt plans to go home with assist and has outpt PT set up. pt may go home when medically stable. Goals Bed Mobility Goal Independent Transfer Goal Independent,Front Wheeled Walker Gait Goal Independent,Front Wheel Walker Gait Distance 200 Days to Meet Goals 5 Frequency of Treatment Frequency Of Treatment Twice a Day Treatment Plan Physical Therapy Treatment Plan Bed Mobility Training,Transfer Training,Gait Training, Therapeutic Exercise,Balance Retraining,Post Op Education, Discharge Planning,Hot or Cold Pack,Neuromuscular Re-ed, Coordination Retraining,Manual Therapy Precautions Anterior Hip Precautions No Hip Extension,No Hip External Rotation Weight Bearing Status Weight Bearing Status Weight Bear as Tolerated Allowed Weight Bearing Amount (enter % RLE WBAT or #) (%) Recommendations To Nursing Amount of Assist Needed 1 Person Assist Discharge Recommendations PT Discharge Recommendations Home with Assistance, Outpatient PT Transportation Needs at Discharge Private Vehicle
--- NOTE | 2024-04-02 12:41 | CM.DANOTE ---
Discharge Planning/Care Management CM Discharge Assessment Start: 04/02/24 12:37 Freq: Status: Active Protocol: Document 04/02/24 12:37 LUIS (Rec: 04/02/24 12:40 LUIS [id number]) Discharge Planning Assessment Assigned Mutton Puncher YAMINI Haque DPOA/Assigned Designee Name BENITO Jiang Contact Information [phone] Advance Directives? Yes Advance Directives on File No History Provided By Patient,Medical Record Prior Living Arrangements Mobile home Household Members significant other Type of transporation used prior to Drives own vehicle admit Independent with ADL's Yes Is patient alert and oriented? Yes: Mild memory loss Patient/Family Preference OP PT Therapy Barriers to Discharge No Comment Patient is POD 1 s/p right ISHAN . Patient is indp at baseline, has planned to return home w/ spouse to assist throughout recovery and therapies have cleared patient for this plan. No needs identified from this CM team. Discharge today, outpatient PT. Discharge Plan Home Transportation Arrangement Family Referrals Initiated None needed
--- NOTE | 2024-04-02 13:02 | PC.NURSE ---
Day shift: Paperwork signed and all questions answered. Pt has all personal belongings. Pt already has his post-op scrits at home. CMS remains intact. PPP. Pain well controlled per MAR. Left unit at approx 1245 via WC. Taken by this field underwriter. Pt's Spouse is driving them home. Dressing remains CDI.
== END 2024-04-02 13:04 | disposition home or self-care (01) ==
LOC: OR 08:50 → AC 08:51
PROVIDERS: Nurse Anesthetist, Certified Registered; PCP Student in an Organized Health Care Education/Training Program; Referring Provider Orthopaedic Surgery Adult Reconstructive Orthopaedic Surgery; Visit Provider Orthopaedic Surgery Adult Reconstructive Orthopaedic Surgery
PROC: (CPT 27130; principal; 2024-04-01 10:45)
DX: M16.11 Unilateral primary osteoarthritis, right hip (principal); M25.751 Osteophyte, right hip
CPT/HCPCS: 27130; 73502; 73503; 76000; 80048; 85027; 97162; 97530; C1776; J0690; J2405; J2704

== ENCOUNTER → 2025-03-14 12:14 | Outpatient (CLI) | payer MEDICARE, SELFPAY ==
[2024-04-01 14:52] VITALS: BMI 29.5
--- NOTE | 2025-03-14 12:16 | DI.ECHO.S_ITS ---
[facility] : : [id number] : : [place] : : [id number] : : Phone: [phone] Echocardiogram Report + + :Name: ASYA CHA Study Date: 03/14/2025 Height: 68 in : :[facility] ReadingLocation: Weight: 180 lb : : Gender: Male BSA: 2.0 m2 : :: 1940 Age: 84 yrs BP: 132/73 mmHg: :Reason For Study: NONRHEUMATIC AORTIC VALVE STENOSIS : :Ordering Physician: NATIVIDAD, : :GUANACO Performed By: Robe Mcnulty : :Referring: GUANACO HENSON : + + Interpretation Summary The patient was in atrial fibrillation with controlled ventricular rate during the exam. The patient had frequent PVCs during the exam. The left ventricle is normal in size. LVEF 60 to 65% The right ventricle is mildly dilated. The right ventricular systolic function is normal.TAPSE: 1.9 cm There is mild to moderate mitral regurgitation. Compared to the prior echo study, there has been no change in the severity of mitral regurgitation. The aortic valve is moderately calcified. There is mildly reduced leaflet mobility. The peak aortic velocity is 2.7 m/sec. The peak aortic velocity on the previous exam was 2.7 m/sec. The aortic valve mean gradient is 15.3 mmHg. The calculated aortic valve area is 1.3 cm2. There is mild to moderate aortic stenosis. There is mild aortic regurgitation. Compared to the prior echo study, there has been no change in the severity of aortic regurgitation. There is mild to moderate tricuspid regurgitation. The right ventricular systolic pressure is estimated to be at least 46 mmHg based on an estimated right atrial pressure of 3 mm Hg. Previously mild TR and PASP 44 mmHg There is mild luminal irregularity and echogenicity in the abdominal aorta, suggestive of aortic atherosclerotic disease. The ascending aorta is mildly enlarged. The aortic root is mildly dilated. 4.3 cm in diameter. Unchanged from the previous study Procedure: A two-dimensional transthoracic echocardiogram with color flow and Doppler was performed. The study quality was technically good. Comparison is made with the echocardiogram of 03/04/2023. The patient had frequent PVCs during the exam. The patient was in atrial fibrillation with controlled ventricular rate during the exam. Left Ventricle: The left ventricle is normal in size. Left ventricular wall thickness is borderline increased. There is no thrombus. The ejection fraction is estimated to be 60-65%. There are no focal wall motion abnormalities. LV dyssynchrony during PVCs. Diastolic function could not be accurately assessed due to atrial fibrillation. Right Ventricle: The right ventricle is mildly dilated. The right ventricular systolic function is normal. Atria: The left atrium is severely dilated. The left atrium has significantly increased in size since the prior echo exam. The right atrium is moderate to severely dilated. There is no Doppler evidence for an interatrial shunt. Mitral Valve: There is mild mitral annular calcification. There is mild to moderate mitral regurgitation. Compared to the prior echo study, there has been no change in the severity of mitral regurgitation. Aortic Valve: The aortic valve is trileaflet. The aortic valve is moderately calcified. There is mildly reduced leaflet mobility. There is mild to moderate aortic stenosis. The peak aortic velocity is 2.7 m/sec. The aortic valve mean gradient is 15.3 mmHg. The calculated aortic valve area is 1.3 cm2. The peak aortic velocity on the previous exam was 2.7 m/sec. There is mild aortic regurgitation. Compared to the prior echo study, there has been no change in the severity of aortic regurgitation. Tricuspid Valve: The tricuspid valve leaflets are thin and pliable. There is mild to moderate tricuspid regurgitation. The right ventricular systolic pressure is estimated to be at least 46 mmHg based on an estimated right atrial pressure of 3 mm Hg. Pulmonic Valve: The pulmonic valve is not well visualized. There is trace pulmonic regurgitation. Great Vessels: The aortic root is mildly dilated. This is unchanged compared to the previous study. The ascending aorta is mildly enlarged. There is mild luminal irregularity and echogenicity in the abdominal aorta, suggestive of aortic atherosclerotic disease. The pulmonary artery is not well visualized, but is probably normal size. The IVC is of normal diameter and collapses greater than 50% with a sniff. This suggests a low right atrial pressure of 3 mm Hg. Pericardium/ Pleura There is no pericardial effusion. There is no pleural effusion. MMode/2D Measurements & Calculations LVIDd: 4.5 cm LVOT diam: 2.1 cm LVIDs: 3.1 cm Ao root diam: 4.3 cm FS: 31.4 % asc Aorta Diam: 4.2 cm EPSS: 0.52 cm IVSd: 1.1 cm LVPWd: 0.98 cm LV lang. diameter/BSA (cm/m^2): 2.3 LV sys. diameter/BSA (cm/m^2): 1.6 LA A2 area: 25.8 cm2 RA long axis: 6.7 cm LA A4 area: 28.5 cm2 RA area: 28.0 cm2 LA length (vol): 6.7 cm RA vol: 100.1 ml LA vol: 93.2 ml RA : 51.2 ml/m2 LA vol index: 47.7 ml/m2 IVC diam: 2.0 cm RVD1 (basal): 4.4 cm RVD2 (mid): 3.2 cm TAPSE: 1.9 cm Doppler Measurements & Calculations Ao V2 max: 270.6 cm/sec LVOT Max Moiz: 96.2 cm/sec Ao V2 mean: 184.0 cm/sec LV V1 max P.7 mmHg Ao max P.3 mmHg LV V1 VTI: 24.0 cm Ao mean P.3 mmHg YULIA(I,D): 1.3 cm2 Ao V2 VTI: 62.3 cm YULIA(V,D): 1.2 cm2 sev ratio: 0.39 YULIA indexed to BSA (cm^2/m^2): 0.66 AI P1/2t: 551.1 msec AI dec slope: 218.9 cm/sec2 MV E max moiz: 92.8 cm/sec TR max moiz: 327.1 cm/sec MV A max moiz: 12.2 cm/sec TR max P.8 mmHg MV E/A: 7.6 PA V2 max: 77.1 cm/sec Med Peak E' Moiz: 6.7 cm/sec PA V2 mean: 54.9 cm/sec E/E' med: 13.8 PA mean P.3 mmHg Lat Peak E' Moiz: 10.1 cm/sec PA pr(Accel): 43.0 mmHg E/E' lat: 9.2 E/e' average: 11.5 MV dec time: 0.17 sec MR ERO: 0.13 cm2 MR PISA: 2.3 cm2 SV(LVOT): 80.4 ml MR flow rate: 84.0 cm3/sec MR PISA radius: 0.60 cm Reading Physician:09:58 AM
== END ==
LOC: ECHO 12:16
PROVIDERS: PCP Student in an Organized Health Care Education/Training Program; Referring Provider Internal Medicine Cardiovascular Disease; Visit Provider Internal Medicine Cardiovascular Disease
DX: I08.3 Combined rheumatic disorders of mitral, aortic and tricuspid valves (principal); I48.91 Unspecified atrial fibrillation; I49.3 Ventricular premature depolarization; I77.89 Other specified disorders of arteries and arterioles; I77.810 Thoracic aortic ectasia
CPT/HCPCS: 93306